=== PATIENT | male | born 1980 | race Two or more races ===

== ENCOUNTER 2018-10-17 09:24 | Emergency (ER) | payer BC, OTHER ==
[~2018-10-17] VITALS: Ht 177.8 cm; Wt 99.8 kg
[~2018-10-17 09:24] MED LIST: NORCO 5-325 TA1 EACH ORAL
[2018-10-17] MEDS ORDERED: NKM (09:38)
[2018-10-17 09:46] VITALS: BP 134/89
--- NOTE | 2018-10-17 09:49 | NUR ---
ED Nurse Note: pt walked in due to lower back pain. pt stated he is tryng to brick picker something and started to hurt, pt admits that it happend to him a lot of time, and it hurts when he came from a sitting position.
[2018-10-17] MEDS ORDERED: Methocarbamol 750mg tab ORAL ONE (10:15)
--- NOTE | 2018-10-17 10:15 | NUR ---
ED Nurse Note: pt went to xray with tech
--- NOTE | 2018-10-17 10:50 | Diagnostic Imaging Report ---
EXAM: XR Lumbar Spine,3 Views CLINICAL HISTORY: PAIN TECHNIQUE: Frontal, lateral, and lateral coned-down views of the lumbar spine. COMPARISON: No relevant prior studies available. FINDINGS: Vertebrae: Unremarkable. 5 [id number] lumbar vertebral segments are noted. Lumbar vertebral body heights are preserved. No visible fracture. Normal alignment. Disc spaces: Mild degenerative disc space loss and endplate osteophytes, most prominent at L4-5 and L5-S1. Soft tissues: Unremarkable. IMPRESSION: Mild degenerative changes, most prominent at L4-5 and L5-S1.
--- NOTE | 2018-10-17 10:58 | Emergency Room Report ---
History of Present Illness General Chief Complaint: Lower Back Pain or Injury Source: Patient Present Illness HPI Patient presents with complaints of low back pain reports that he has had back problems off and on for many years Usually after several days of discomfort he gets better More recently patient had an episode while bending forward to vegetable picker some instruments Had exacerbation of lower back this happened on And he reports that It does not usually go on for 4 days as he was having continued discomfort Pain with trying to stand and with initial ambulation presents to the ER denies any focal weakness denies any saddle paresthesia Denies any loss of control of bowel or urination Patient points to the mid lower back region Allergies: Coded Allergies: No Known Allergies (Unverified , 07/06/14) Patient History Past Medical History: see triage record Reviewed Nursing Documentation: PMH: Agreed; PSxH: Agreed Nursing Documentation-PMH Past Medical History: No Stated History Review of Systems All Other Systems: negative except mentioned in HPI Physical Exam Vital Signs Date Time Temp Pulse Resp B/P (MAP) Pulse Ox O2 Delivery O2 Flow Rate FiO2 10/17/18 09:32 98.2 74 17 134/89 (104) 96 Room Air Sp02 EP Interpretation: reviewed, normal General Appearance: well appearing, no apparent distress Head: normocephalic, atraumatic Eyes: bilateral eye PERRL, bilateral eye EOMI ENT: normal pharynx Neck: supple Respiratory: lungs clear, no respiratory distress, no retraction Cardiovascular #1: regular rate, rhythm Gastrointestinal: non tender, soft Musculoskeletal: other - Some increased discomfort paraspinal L3-L4 no midline step-off, patient is ambulatory Neurologic: alert, oriented x3, responsive Skin: no rash Lymphatic: no adenopathy Medical Decision Making Diagnostic Impression: Primary Impression: Low back pain ER Course Given the patient's history and presentation x-ray imaging is initially obtained there are some chronic findings No obvious acute pathology patient Understands the need for close follow-up and possible MRI as needed no other neurological symptoms are Found at this time and patient stable for close follow-up Other X-Ray Diagnostic Results Other X-Ray Diagnostic Results : X-Ray ordered: L spine # of Views/Limited Vs Complete: 4 View Indication: Pain EP Interpretation: Yes Interpretation: no dislocation, no soft tissue swelling, no fractures Impression: No acute disease - Degenerative changes Electronically Signed by: Florian Barclay DO Last Vital Signs Date Time Temp Pulse Resp B/P (MAP) Pulse Ox O2 Delivery O2 Flow Rate FiO2 10/17/18 09:46 98.2 74 17 134/89 96 Room Air Status: improved Disposition: HOME, SELF-CARE Condition: Improved Scripts Methocarbamol* (ROBAXIN-750*) 750 Mg Tablet 750 MG PO TID, #21 TAB 0 Refills Prov: Florian Barclay DO 10/17/18 Ibuprofen* (MOTRIN*) 600 Mg Tablet 600 MG ORAL Q8H PRN for For Pain, #20 TAB 0 Refills Prov: Florian Barclay DO 10/17/18 Referrals: [facility] (PCP) Additional Instructions: Patient is provided with the discharge instructions notified to follow up with primary doctor in the next 2-3 days otherwise return to the er with any worsening symptoms. Please note that this report is being documented using [employer] technology. This can lead to erroneous entry secondary to incorrect interpretation by the dictating instrument. Florian Barclay DO Oct 17, 2018 10:58
[2018-10-17] MEDS ORDERED: ROBAXIN-750750 MG PO (11:15)
[2018-10-17] MEDS ORDERED: IBUPROFEN600 MG ORAL (11:15)
[2018-10-17 11:22] VITALS: BP 134/89
--- NOTE | 2018-10-17 11:22 | NUR ---
ER DISCHARGE NOTE: Patient is cleared to be discharged per ERMD, pt is aox4, on room air, with stable vital signs. pt was given dc and prescription instructions, pt was able to verbalize understanding, pt id band removed without complications. pt is able to ambulate with steady gait. pt took all belongings.
== END 2018-10-17 11:22 | disposition home or self-care (01) ==
LOC: EMR 09:51
DX: M54.5 Low back pain (principal)
CPT/HCPCS: 72020; 99283